=== PATIENT | female | born 2005 | race Caucasian/White ===

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

== ENCOUNTER 2024-03-07 09:45 | Emergency (ER) | payer OTHER ==
[2024-03-07 09:58] VITALS: PULSE 78
[2024-03-07] MEDS: IBUPROFEN 800 MG TAB PO STA (10:32)
[2024-03-07] MEDS: CLINDAMYCIN 150 MG CAP PO STA (10:32)
--- NOTE | 2024-03-07 11:04 | ED ---
ENT HPI - General Chief complaint: Recheck/Abnormal Lab/Rx Stated complaint: Tooth infection, face swelling Time Seen by Provider: 03/07/24 10:00 Source: patient, RN notes reviewed Mode of arrival: ambulatory Limitations: no limitations - History of Present Illness Initial comments: This is a 18-year-old female who presents to the emergency department for concerns of a dental infection. Patient has had pain and swelling in the left upper jaw near the front teeth. This started about 4 days ago. She is concerned about infection and states that is getting increasingly painful. She does have relief with [id number] Tylenol. She is having difficulty with renewing her Medicaid and has not been able to get in with a dentist yet. Denies any fevers or chills. MD complaint: tooth pain - Related Data Home Medications Medication Instructions Recorded Confirmed QUEtiapine [SEROquel] 100 mg PO HS 08/23/21 09/04/21 Sertraline [Zoloft] 50 mg PO DAILY 08/23/21 09/04/21 Previous Rx's Medication Instructions Recorded Ibuprofen [Motrin] 800 mg PO Q8H PRN #30 tab 03/07/24 clindamycin HCL 300 mg PO QID 10 Days #40 capsule 03/07/24 Allergies Allergy/AdvReac Type Severity Reaction Status Date / Time diphenhydramine Allergy Rash/Hives Verified 03/07/24 09:58 [From Benadryl] Penicillins Allergy Rash/Hives Verified 03/07/24 09:58 Sulfa (Sulfonamide Allergy Anaphylaxis Verified 03/07/24 09:58 Antibiotics) Review of Systems ROS Statement: Those systems with pertinent positive or pertinent negative responses have been documented in the HPI. ROS Other: All systems not noted in ROS Statement are negative. Past Medical History Past Medical History: No Reported History History of Any Multi-Drug Resistant Organisms: None Reported Past Surgical History: No Surgical Hx Reported Additional Past Surgical History / Comment(s): IUD Past Psychological History: Anxiety, Bipolar, Depression, Schizophrenia Smoking Status: Never smoker Past Alcohol Use History: None Reported Past Drug Use History: None Reported General Exam Limitations: no limitations General appearance: alert, in no apparent distress Head exam: Present: atraumatic, normocephalic, normal inspection ENT exam: Present: other (Palpable abscess above the left front tooth with visible purulent material under the mucosa.) Respiratory exam: Present: normal lung sounds bilaterally. Absent: respiratory distress, wheezes, rales, rhonchi, stridor Cardiovascular Exam: Present: regular rate, normal rhythm, normal heart sounds. Absent: systolic murmur, diastolic murmur, rubs, gallop, clicks Neurological exam: Present: alert, oriented X3, CN II-XII intact Psychiatric exam: Present: normal affect, normal mood Skin exam: Present: warm, dry, intact, normal color. Absent: rash Course Vital Signs 03/07/24 03/07/24 09:54 11:54 Temperature 98.7 F 98.3 F Pulse Rate 78 78 Respiratory 20 18 Rate Blood Pressure 121/80 132/78 O2 Sat by Pulse 98 98 Oximetry Procedures - Incision & Drainage Consent Obtained: verbal consent Indication: Dental abscess Site: oral Size (cm): 2 Sterile Field Used?: Yes Scalpel Used: #11 I&D Drainage Obtained: Pus Medical Decision Making - Medical Decision Making This is a 18-year-old female who presents to the emergency department for dental pain. Was pt. sent in by a medical professional or institution? @ -No Did you speak to anyone other than the patient for history? @ -No Did you review nursing and triage notes? @ -Yes, and I agree, it is accurate with regards to the patient's symptoms. Were old charts reviewed? @ -No Differential Diagnosis? @ -Differential Dental Pain Dental abscess, chipped tooth, dental carries, jona's angina, trigeminal neuralgia, this is not meant to be an all-inclusive list. EKG interpreted by me (3pts min.)? @ -Not obtained X-rays interpreted by me (1pt min.)? @ -Not obtained CT interpreted by me (1pt min.)? @ -Not obtained U/S interpreted by me (1pt. min.)? @ -Not obtained What testing was considered but not performed? (CT, X-rays, U/S, labs)? Why? @ -None What meds were considered but not given? Why? @ -None Did you discuss the management of the patient with other professionals? @ -No Did you reconcile home meds? @ -No Was smoking cessation discussed for >3mins.? @ -No Was critical care preformed (if so, how long)? @ -No Were there social determinants of health that impacted care today? How? (Homelessness, low income, unemployed, alcoholism, drug addiction, transportation, low edu. Level, literacy, decrease access to med. care, halfway, rehab)? @ -No Was there de-escalation of care discussed even if they declined? (Discuss DNR or withdrawal of care, Hospice)? @ -No What co-morbidities impacted this encounter? (DM, HTN, Smoking, COPD, CAD, Cancer, CVA, Hep., AIDS, mental health diagnosis, sleep apnea, morbid obesity)? @ -None Was patient admitted / discharged? @ -Discharged. Patient had a visible dental abscess above the left front tooth. HurriCaine spray applied and incision and drainage performed with a large amount of purulent material expressed. Patient had relief in pain and pressure afterwards. Clindamycin and ibuprofen prescribed for further management. Otherwise advised follow-up with a dentist. Patient discharged home in stable condition. Case discussed with ED attending Dr. Guthrie. Return precautions reviewed in depth, the patient is instructed to return to the emergency department with any new, worsening, or concerning symptoms. Patient verbalized understanding. Undiagnosed new problem with uncertain prognosis? @ -None Drug Therapy requiring intensive monitoring for toxicity (Heparin, Nitro, Insulin, Cardizem)? @ -None Were any procedures done? @ -Incision and drainage Diagnosis/symptom? @ -Dental abscess Acute, or Chronic, or Acute on Chronic? @ -Acute Uncomplicated (without systemic symptoms) or Complicated (systemic symptoms)? @ -Uncomplicated Side effects of treatment? @ -None Exacerbation, Progression, or Severe Exacerbation] @ -Not applicable Poses a threat to life or bodily function? @ -No Disposition Clinical Impression: Dental abscess Disposition: HOME SELF-CARE Instructions (If sedation given, give patient instructions): Dental Abscess (ED) Additional Instructions: Return to the emergency department with any new, worsening, or concerning symptoms. Take the antibiotic as prescribed for 10 days. Alternate with ibuprofen and Tylenol as needed for pain relief. Follow-up with a dentist. Prescriptions: clindamycin HCL 300 mg PO QID 10 Days #40 capsule Ibuprofen [Motrin] 800 mg PO Q8H PRN #30 tab PRN Reason: Pain Is patient prescribed a controlled substance at d/c from ED?: No Referrals: Shawn Ly MD [REFERRING] - 1-2 days Time of Disposition: 11:03
[2024-03-07] MEDS: ACET/COD 300 MG/30 MG STARTER PACK 6 TAB BTL PO STA (11:48)
[2024-03-07] MEDS: BENZOCAINE SPRAY 1 CAN MUCOUS MEM STA (11:53)
[2024-03-07 11:55] VITALS: BP 132/78; RESP 18; TEMP 98.3
== END 2024-03-07 11:55 | disposition home or self-care (01) ==
LOC: EC 09:45
DX: K04.7 Periapical abscess without sinus (principal); Z88.2 Allergy status to sulfonamides; Z88.0 Allergy status to penicillin; Z88.8 Allergy status to other drugs, medicaments and biological substances
CPT/HCPCS: 41800; 99283